=== PATIENT | female | born 1985 | race Caucasian/White ===

== ENCOUNTER 2019-07-14 20:11 | Emergency (ER) | payer OTHER ==
[2019-07-14 20:21] VITALS: BP 134/91
--- NOTE | 2019-07-14 20:56 | ED Physician Documentation ---
History of Present Illness - Stated complaint Stated Complaint: LT EAR PX - Chief complaint Chief Complaint: Heent - History obtained from History obtained from: Patient (Patient is a 33-year-old female who is complaining of left ear pain after she tried to clear her ears today. She reports she has had cold symptoms for the last 2 to 3 days and she has been taking Sudafed she denies any history of barotrauma or history of Surgery for pressure equalization tubes.She denies any headache or neck pain or fevers or rashes.She denies any discharge from her tympanic membrane's.) Review of Systems Constitutional: reports: Reviewed and negative Eyes: reports: Reviewed and negative Ears: reports: Ear pain. denies: Loss of hearing, Drainage/discharge, Foreign body Nose: reports: Reviewed and negative Throat: reports: Reviewed and negative Cardiac: reports: Reviewed and negative Respiratory: reports: Reviewed and negative GI: reports: Reviewed and negative : reports: Reviewed and negative Skin: reports: Reviewed and negative Musculoskeletal: reports: Reviewed and negative Neurologic: reports: Reviewed and negative Psychiatric: reports: Reviewed and negative Endocrine: reports: Reviewed and negative Immunocompromised: reports: Reviewed and negative PD PAST MEDICAL HISTORY - Past Medical History Endocrine/Autoimmune: None - Past Surgical History Past Surgical History: No - Present Medications Home Medications: Ambulatory Orders Medication Instructions Recorded Confirmed Cephalexin [Keflex] 500 mg PO TID #20 capsule 08/29/15 Hydrocodone/Acetaminophen [Archie 1 each PO Q6H PRN #10 tablet 08/29/15 5-325 Tablet] dexAMETHasone [Decadron] 4 mg PO DAILY #5 tablet 08/29/15 - Allergies Allergies/Adverse Reactions: Allergies Allergy/AdvReac Type Severity Reaction Status Date / Time No Known Drug Allergies Allergy Verified 07/14/19 20:19 - Social History Does the pt smoke?: Yes Smoking Status: Current every day smoker Does the pt drink ETOH?: Yes Does the pt have substance abuse?: No - Immunizations Immunizations: TDAP >10years/unknown PD ED PE NORMAL - Vitals Vital signs reviewed: Yes - General General: Alert and oriented X 3, No acute distress, Well developed/nourished - HEENT HEENT: Atraumatic, PERRL, EOMI, Moist mucous membranes, Pharynx benign, Dentition benign, Other (The right tympanic membrane has normal landmarks there is a normal Valsalva there is no discharge in the external auditory canal. There is no tenderness over the mastoid there is no preauricular lymphadenopathy in the left tympanic membrane is erythematous there is an abnormal Valsalva on the left the tympanic membrane is intact there is no discharge in the external auditory canal there is no tenderness over the mastoid process and there is no preauricular lymphadenopathy oropharynx shows postnasal drip present the uvula is midline there is normal voice there is no anterior posterior cervical lymphadenopathy no meningeal signs.) - Neck Neck: Supple, no meningeal sign - Cardiac Cardiac: RRR, No murmur, Strong equal pulses - Respiratory Respiratory: Clear bilaterally - Abdomen Abdomen: Normal bowel sounds, Soft, Non tender, Non distended - Derm Derm: Warm and dry - Extremities Extremities: No deformity - Neuro Neuro: Alert and oriented X 3, 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, No motor deficit, No sensory deficit, Normal speech - Psych Psych: Normal mood, Normal affect Results - Vitals Vitals: Vital Signs - 24 hr 07/14/19 20:19 Temperature 36.6 C Heart Rate 77 Respiratory 14 Rate Blood Pressure 134/91 H O2 Saturation 99 Oxygen O2 Source Room air PD MEDICAL DECISION MAKING - ED course Complexity details: d/w patient, other (Patient with left ear pain will provide short-term treatment with a Archie prepack.She should try [id number] Afrin.And follow-up with her primary care provider tomorrow.) Departure - Departure Disposition: 01 Home, Self Care Clinical Impression: Left ear pain Condition: Good Instructions: ED Obstruction Eustachian Tube Ch Follow-Up: YOUR,DOCTOR [Other] - Tomorrow Comments: TRY OVER THE COUNTER AFRIN FOR THE NEXT 24-48 HOURS. FOLLOW UP WITH YOUR PCP TOMORROW.
[2019-07-14] MEDS ORDERED: HYDROcod/ACET 5/325 Prepack 4 PO STA (21:07)
== END 2019-07-14 21:20 | disposition home or self-care (01) ==
LOC: ED 20:11
DX: H92.02 Otalgia, left ear (principal); R09.82 Postnasal drip; F17.200 Nicotine dependence, unspecified, uncomplicated
CPT/HCPCS: 99282

== ENCOUNTER 2023-04-17 09:24 | Outpatient (CLI) | payer OTHER | END 2023-04-17 09:25 | disposition home or self-care (01) | LOC: SC 09:24 | PROVIDERS: ATTEND Nurse Practitioner Family | DX: G47.33 Obstructive sleep apnea (adult) (pediatric) (principal); R09.02 Hypoxemia; E66.9 Obesity, unspecified; Z68.36 Body mass index [BMI] 36.0-36.9, adult; F32.A Depression, unspecified | CPT/HCPCS: 95806 ==

== ENCOUNTER 2023-05-06 11:21 | Outpatient (CLI) | payer OTHER ==
--- NOTE | 2023-05-06 12:16 | Sleep Patient Instructions ---
Sleep Center Visit Summary - Patient Visit Information Reason for Visit: Sleep study followup - Patient Instructions Instructions Attached: CPAP Additional Instructions: You are being started on CPAP therapy with pressure setting at 4-15 cmH2O. You w ill need to call the sleep care office to set up your follow up once you have your APAP machine and we will schedule a visit to check compliance and response to therapy at that time. You may call the office with any concerns about pressure feeling too low or too much for adjustment, if needed. You should contact DME supplier for any questions or concerns about mask or equipment. Please call office to schedule a follow up appointment in the sleep care office one month after obtaining new device. - Clinic Information Contact: [facility] [address] [place] [address] [email or web address] T: [phone]
--- NOTE | 2023-05-06 12:18 | SLEEP CARE CONSULTATION ---
Information from patient questionnaire entered by Ashli Garcia. I have reviewed and concur with the information entered by Ashli Garcia. This document represents the service I personally performed and the decisions made by me, Chantel Steen ARNP. History of Present Illness Service Date and Time: 05/06/2023 112 Initial [place] Sleepiness Scale score: 14 (04/02/23) Current [place] Sleepiness Scale score: 13 Additional HPI information: BELINDA MAN returns for follow up and results of the recently performed home sleep study. The sleep study showed mild obstructive sleep apnea with an average AHI of 5.8 and abhi oxygen saturation of 87%. I explained the pathophysiology behind obstructive sleep apnea. We then spent quite a bit of time discussing different treatment options. For mild obstructive sleep apnea, surgery and oral appliance are alternatives to nasal CPAP therapy but in moderate or severe cases, nasal CPAP is the most effective and reliable treatment. Because apnea is primarily in supine position, then positional management therapy could be effective. Methods discussed such as positioning with pillows, using a T-shirt with tennis balls in the back or commercial products that have a pillow format on back to prevent supine sleep. I reviewed the impact of weight changes on sleep apnea and strongly recommended losing weight. After some discussion, the patient opted to go with the nasal CPAP therapy. Nasal autoCPAP set at 4-15 cmH20 will be ordered with rationale explained. A manual titration study will be ordered if unable to find optimal pressure with office adjustments. I explained how CPAP machine works and what to expect when using the machine. Using CPAP every night in order to get used to it was emphasized. Patient advised to put CPAP mask on before getting into bed so as not to fall asleep without CPAP. To assist acclimation to CPAP use, it could also be used for a short time during day while reading or watching TV. The patient was instructed to call the CPAP supplier to discuss any mechanical problem that may occur. If the mask given is uncomfortable or is difficult to keep on through the night even with adjustment, contact the CPAP supplier as many will replace with an other mask style if notified before 30 days. If snoring or perceives is not getting enough air or too much air from the machine, notify this office. Patient counseled not drink alcohol less than 4 hours before bedtime as it can increase snoring and apnea. Patient was cautioned about risks of drowsy driving until sleepiness symptoms resolve. Patient denies drowsy driving. Sleep Study - Results Type of Sleep Study: Home sleep study (COMPLETED 04/17/23) Prior sleep studies: No Polysomnography/Home Sleep Study results: Physician Impression: The quality of the study is good. The length of the study is adequate (> 240 minutes). Please also see the tabulated and graphic data. 1. Obstructive Sleep Apnea-Hypopnea (ICD-10 G47.33), mild, with an AHI of 5.8/hr and abhi SaO2 of 87%. During the study, the patient had 16 apneas (16 obstructive, 0 central, 0 mixed) and 21 hypopneas. The longest episode lasted 68.0 seconds. The respiratory events occurred slightly more frequently during supine sleep (supine AHI was 8.7 and non-supine, 4.93). 2. Hypoxemia (ICD-10 R09.02), mild, with the lowest oxygen saturation of 87 % and 1.2 minutes with SaO2 under 90%. Baseline oxygen saturation was normal (Average oxygen saturation was 95%). Allergies and Home Medications Known drug allergies: No Drug allergies reviewed: Yes Home medication list reviewed: Yes (no changes) Allergy and home medication list: Allergies No Known Drug Allergies Allergy (Verified 05/05/23 09:05) Review of Systems Review of systems same as previous: Yes (no changes) Physical Exam Vital signs obtained and entered by: CHANTEL MCCRAY Blood Pressure: 114/73 Cuff size: wrist (right) Heart Rate: 74 O2 Saturation: 98 Height: 5 ft 2.5 in Weight: 208 lb 12.8 oz Body Mass Index: 37.5 BMI Classification: Obese Impression and Plan 1. Obstructive Sleep Apnea-Hypopnea Syndrome, mild, with lowest oxygen saturation of 87%. Obviously this is the cause of the patients symptoms of unrefreshed sleep, and excessive daytime sleepiness. Positive pressure therapy could benefit anxiety, depression, mood disorder and attention deficit. As mentioned above, the patient will be started on nasal autoCPAP therapy with pressure set at 4-15 cmH2O. Compliance guidelines also reviewed. A copy of compliance guidelines will be given for reference at check out. Because the apnea is more severe supine, I instructed to avoid sleeping supine using pillow positioning until able to start CPAP use. 2. Obesity, unspecified. Currently patients BMI is 37.5. Obesity increases the risk of apnea, CPAP pressure requirements and overall health risks especially cardiovascular and diabetes. Thus patient is advised to lose weight. * Nasal auto CPAP therapy, pressure at 4-15 cm H2O. * Attempt to lose weight. * Avoid alcohol consumption near bedtime. * Avoid supine sleep until using CPAP. * The patient is again cautioned about driving until sleepiness completely resolves. * Return one month after CPAP obtained. I will assess response to therapy and compliance at that time. Counseling Topics: Sleeping position, Weight loss health impact Prescriptions: Auto CPAP Plan: Compliance followup with PAP machine Visit Type: In Office Time Spent with Patient (minutes): 24 Provider Statement: I spent 100% of the Face to Face Visit with the patient with greater than 50% spent counseling the patient and coordination of care.
[2023-05-06 12:26] VITALS: BP 114/73; O2SAT 98
== END 2023-05-06 11:22 | disposition home or self-care (01) ==
LOC: SC 11:21
PROVIDERS: ATTEND Nurse Practitioner Family
DX: G47.33 Obstructive sleep apnea (adult) (pediatric) (principal); E66.9 Obesity, unspecified; Z68.37 Body mass index [BMI] 37.0-37.9, adult
CPT/HCPCS: 99212; 99213

== ENCOUNTER 2023-07-23 14:41 | Outpatient (CLI) | payer OTHER ==
--- NOTE | 2023-07-23 15:06 | Sleep Patient Instructions ---
Sleep Center Visit Summary - Patient Visit Information Reason for Visit: First compliance with PAP machine - Patient Instructions Additional Instructions: You were here for follow up of CPAP therapy. You will be continued on CPAP therapy with pressure at 7-11 cmH2O. Please let us know if the pressure change is uncomfortable and we can make further adjustments of the pressure. You should follow up with sleep care in 1-2 months. You may contact us sooner for any questions or concerns. - Clinic Information Contact: [facility] [address] [place] [address] [email or web address] T: [phone]
--- NOTE | 2023-07-23 15:10 | SLEEP CARE CONSULTATION ---
Information from patient questionnaire entered by Merlene Garcia. I have reviewed and concur with the information entered by Merlene Garcia. This document represents the service I personally performed and the decisions made by , Chantel Steen ARNP. History of Present Illness Service Date and Time: 07/23/2023 1441 Previous diagnosis: Mild, Obstructive Sleep Apnea-Hypopnea Syndrome AHI: 5.8 (04/17/23) Reason for follow up: first compliance Equipment type: CPAP (RESMED Airsense 11, s/u 06/12/23) Equipment obtained from: [employer] (getting supplies) Mask style: Nasal Mask brand: Resmed ([id number]) Backup mask available: No (will keep old mask when replaced) Last cushion change: 4 weeks Prior sleep studies: No Type of Sleep Study: Home sleep study (COMPLETED 04/17/23) HPI additional information: BELINDA MAN was diagnosed to have mild, AHI 5.8, obstructive sleep apnea- hypopnea syndrome and returned today for CPAP therapy first compliance follow- up. Sleep Study - Results Type of Sleep Study: Home sleep study (COMPLETED 04/17/23) Prior sleep studies: No CPAP Compliance Data - Data Reviewed with Patient Average duration of nightly device use: 5 HRS 25 MINS Compliance rate %: 63 (06/22/23-07/21/23; /30 days used) Current pressure setting (cmH2O): 4-15 (median 7.4, avg 10, max 11.1) Average residual AHI: 1.3 Central apnea: 0 Obstructive apnea: 1.1 Hypopnea: 0.1 Average large leak: 0.8 L/min Subjective Missed days of use due to: reports: illness (nasal congestion), other (fell asleep without mask on) Patient concerns: reports: nasal congestion (allergies issues). denies: aerophagia, mask discomfort, air blowing in eyes, mask leak noise, condensation in mask/hose, dry mouth, nose, throat, epistaxis Observed to snore while using device: No Current pressure setting perceived as: comfortable On therapy, patient: reports: other (not feeling any improvement so far). denies: drowsiness while driving Initial [place] Sleepiness Scale score: 14 (04/02/23) Current [place] Sleepiness Scale score: 12 (07/23/23) Allergies and Home Medications Known drug allergies: No Allergy and home medication list: Allergies No Known Drug Allergies Allergy (Verified 07/22/23 12:16) Review of Systems Review of systems same as previous: Yes (NO CHANGE) Physical Exam Vital signs obtained and entered by: MERLENE Espinoza MA Blood Pressure: 131/85 (LEFT ARM) Cuff size: regular Heart Rate: 86 O2 Saturation: 97 Height: 5 ft 2.5 in Weight: 213 lb Body Mass Index: 38.3 BMI Classification: Obese Impression and Plan 1. Obstructive Sleep Apnea-Hypopnea Syndrome, mild, with fair treatment compliance and good apnea control. She says she has not felt like she is sleeping better or more rested overall. She has pain issues and moves a lot in bed. She is also a short night sleeper, only 5 1/2 hours sleep nightly. Most people require 7-9 hours of sleep for optimal mental and physical function. Less than 5-6 hours of sleep consistently can contribute to health risks and mortality. Thus patient is advised to strive for a minimum of 7 hours of sleep. The patients pressure will be changed to autoCPAP 7-11 cmH20 to reflect pressure being used with good control of her sleep apnea. Patient advised to contact me if pressure change is uncomfortable so that it can be adjusted. Goals for apnea control discussed. Patient's apnea severity and rationale for treatment to reduce apnea, improve sleep quality and reduce cardiovascular and cerebrovascular events was reviewed. I also reviewed the benefit of consistent device use of CPAP for depression/anxiety, mood disorder and attention deficit. 2. Obesity, unspecified. Currently patients BMI is 38.3. Obesity increases the risk of apnea, CPAP pressure requirements and overall health risks especially cardiovascular and diabetes. Thus patient is advised to lose weight. * Change auto CPAP pressure to 7-11 cmH2O * Notify me if snoring with mask or feeling that the pressure is too much or too little * Attempt to lose weight * Call this office if any problems using CPAP * Return for follow up in 1-2 months, or sooner if concerns arise Adjust device pressure to (cmH2O): 7-11 Counseling Topics: Spare mask, Weight loss health impact Follow up with Sleep Care in: 1-2 months Visit Type: In Office Time Spent with Patient (minutes): 16 Provider Statement: I spent 100% of the Face to Face Visit with the patient with greater than 50% spent counseling the patient and coordination of care.
[2023-07-23 15:12] VITALS: BP 131/85; O2SAT 97
== END 2023-07-23 14:42 | disposition home or self-care (01) ==
LOC: SC 14:41
PROVIDERS: ATTEND Nurse Practitioner Family
DX: G47.33 Obstructive sleep apnea (adult) (pediatric) (principal); E66.9 Obesity, unspecified; Z68.38 Body mass index [BMI] 38.0-38.9, adult
CPT/HCPCS: 99212; 99213

== ENCOUNTER 2023-08-27 11:15 | Outpatient (CLI) | payer OTHER ==
--- NOTE | 2023-08-27 11:51 | Sleep Patient Instructions ---
Sleep Center Visit Summary - Patient Visit Information Reason for Visit: 1 month follow-up with pressure change - Patient Instructions Additional Instructions: You were here for follow up of CPAP therapy. You will be continued on CPAP therapy with pressure at 7-11 cmH2O. Please try mask sent home with you and let me know if you want to change to this style, so I can change this with Mari. You should follow up with sleep care in 3 months. You may contact us sooner for any questions or concerns. - Clinic Information Contact: [facility] [address] [place] [address] [email or web address] T: [phone]
--- NOTE | 2023-08-27 11:57 | SLEEP CARE CONSULTATION ---
Information from patient questionnaire entered by Ashli Garcia. I have reviewed and concur with the information entered by Ashli Garcia. This document represents the service I personally performed and the decisions made by , Chantel Steen ARNP. History of Present Illness Service Date and Time: 08/27/2023 111 Previous diagnosis: Mild, Obstructive Sleep Apnea-Hypopnea Syndrome AHI: 5.8 (04/17/23) Reason for follow up: one month (F/U) Equipment type: CPAP (RESMED Airsense 11, s/u 06/12/23) Equipment obtained from: [employer] ([employer] supplies) Mask style: Nasal Mask brand: Resmed Backup mask available: No Last cushion change: 1 week Prior sleep studies: No Type of Sleep Study: Home sleep study (COMPLETED 04/17/23) HPI additional information: BELINDA MAN was diagnosed to have mild, AHI 5.8, obstructive sleep apnea- hypopnea syndrome and returned today for CPAP therapy one month follow-up. Sleep Study - Results Type of Sleep Study: Home sleep study (COMPLETED 04/17/23) Prior sleep studies: No CPAP Compliance Data - Data Reviewed with Patient Average duration of nightly device use: 6 HRS 0 MINS Compliance rate %: 73 (07/26/23-08/24/23; days used) Current pressure setting (cmH2O): 7-11 Average residual AHI: 1.0 Central apnea: 0 Obstructive apnea: 0.9 Average large leak: 0.4 L/min Subjective Missed days of use due to: reports: other (allergies and congestion) Patient concerns: reports: mask discomfort (skin irritation and pain where mask cushion connects to sides). denies: aerophagia, air blowing in eyes, mask leak noise, condensation in mask/hose, nasal congestion, dry mouth, nose, throat, epistaxis Observed to snore while using device: No Current pressure setting perceived as: comfortable On therapy, patient: reports: sleeping better. denies: drowsiness while driving Initial [place] Sleepiness Scale score: 14 (04/02/23) Current [place] Sleepiness Scale score: 13 (08/27/23) Allergies and Home Medications Known drug allergies: No Drug allergies reviewed: Yes Home medication list reviewed: Yes (no changes) Allergy and home medication list: Allergies No Known Drug Allergies Allergy (Verified 08/25/23 08:55) Review of Systems Review of systems same as previous: Yes (no changes) Physical Exam Vital signs obtained and entered by: ASHLI Espinoza MA Blood Pressure: 154/98 (LEFT ARM) Cuff size: regular Heart Rate: 93 O2 Saturation: 98 Height: 5 ft 2.5 in Weight: 210 lb 9.6 oz Body Mass Index: 37.9 BMI Classification: Obese Impression and Plan 1. Obstructive Sleep Apnea-Hypopnea Syndrome, mild, with good treatment compliance and good apnea control. On CPAP therapy, the patient has better sleep quality. Patient states she has been having some physical pain which is waking her up a lot at night and limiting her ability to feel rested in the mornings. She does feel the CPAP therapy is going well except that her mask is creating sore spots on the sides of her face, top of the cheeks, when using her mask. She states she has eczema and is unsure if this is contributing to skin irritation and soreness. I tried a different style of mask, Oniel Dreamwear gel nasal pillows mask, small cushion, that she felt was comfortable. She will try at home and let me know if she wants to change to this mask. I would then inform her DME of this change. Patient's apnea severity and rationale for treatment to reduce apnea, improve sleep quality and reduce cardiovascular and cerebrovascular events was reviewed. I also reviewed the benefit of consistent device use of CPAP for depression/anxiety, mood disorder and attention deficit. 2. Obesity, unspecified. Currently patients BMI is 37.9. Obesity increases the risk of apnea, CPAP pressure requirements and overall health risks especially cardiovascular and diabetes. Thus patient is advised to lose weight. * Continue auto CPAP pressure at 7-11 cmH2O * Try Dreamwear nasal pillows (gel pillows) mask, small cushion * Notify me if snoring with mask or feeling that the pressure is too much or too little * Attempt to lose weight * Call this office if any problems using CPAP * Return for follow up in 3 months, or sooner if concerns arise Mask provided: Yes Counseling Topics: Spare mask, Weight loss health impact Follow up with Sleep Care in: 3 months Visit Type: In Office Time Spent with Patient (minutes): 25 Provider Statement: I spent 100% of the Face to Face Visit with the patient with greater than 50% spent counseling the patient and coordination of care.
[2023-08-27 12:14] VITALS: BP 154/98; O2SAT 98
== END 2023-08-27 11:16 | disposition home or self-care (01) ==
LOC: SC 11:15
PROVIDERS: ATTEND Nurse Practitioner Family
DX: G47.33 Obstructive sleep apnea (adult) (pediatric) (principal); E66.9 Obesity, unspecified; Z68.37 Body mass index [BMI] 37.0-37.9, adult
CPT/HCPCS: 99212; 99213

== ENCOUNTER 2023-10-02 16:31 | Outpatient (CLI) | payer OTHER ==
--- NOTE | 2023-10-03 10:03 | MRI Report ---
PROCEDURE: Elbow RT WO INDICATIONS: R ELBOW PAIN TECHNIQUE: Noncontrast coronal proton density fast spin echo and T2 fast spin echo with fat saturation, axial an d sagittal T1 spin echo and T2 fast spin echo with fat saturation through the elbow. COMPARISON: None. FINDINGS: Image quality: Excellent. Lateral structures: The lateral ulnar collateral ligament and radial collateral ligament both appear intact. The overlying common extensor tendon demonstrates mild tendinosis and focal low-grade parti al intrasubstance tearing at the origin. Medial structures: The ulnar collateral ligament appears intact. The overlying common flexor tendon appears normal. The ulnar nerve appears normal in size and signal within the cubital tunnel. A sma ll accessory anconeus epitrochlearis muscle is seen that mildly narrows the cubital tunnel. Anterior structures: The biceps and brachialis tendons both appear intact as they insert onto the pr oximal radius and ulna, respectively. No bicipitoradial bursal fluid. The median and radial neurova scular bundles appear normal; no focal muscle atrophy to suggest nerve impingement. Posterior structures: The triceps tendon appears intact. No olecranon bursal fluid. Bone and cartilage: No bone marrow contusions or fractures. No osteochondral injuries. IMPRESSION: 1.Low-grade partial intrasubstance tearing of the common extensor tendon at the origin superimposed o n mild tendinosis. 2.No acute trabecular bone injury. No significant ligament injury is seen. 3.Normal variant accessory anconeus epitrochlearis muscle mildly narrows the cubital tunnel without s ignificant thickening or abnormal signal in the ulnar nerve. Reviewed by: Dean Alfaro MD on 10/03/2023 10:02 AM PDT Approved by: Dean Alfaro MD on 10/03/2023 10:02 AM PDT Station ID: [id number]
== END 2023-10-02 16:32 | disposition home or self-care (01) ==
LOC: DI 16:31
PROVIDERS: ATTEND Nurse Practitioner Family
DX: S56.511A Strain of other extensor muscle, fascia and tendon at forearm level, right arm, initial encounter (principal)

== ENCOUNTER 2023-12-23 16:46 | Outpatient (CLI) | payer OTHER ==
--- NOTE | 2023-12-24 22:34 | Ultrasound Report ---
PROCEDURE: Pelvic w/Transvaginal INDICATIONS: MENORRHAGIA, DYSMENORRHEA TECHNIQUE: Real-time scanning was performed of the pelvic organs, with image documentation. Additional endovagi nal scanning was necessary due to incomplete visualization of the adnexal and endometrial structures by transabdominal scanning. COMPARISON: None. FINDINGS: Uterus: Uterus is anteverted and mildly enlarged in size at 10.5 x 4.4 x 6.1 cm. The myometrium is homogeneous. The endometrium measures 12.4 mm in combined thickness. Ovaries: The right ovary measures 2.5 x 1.4 cm, not well seen. The left ovary measures 1.7 x 1.3 cm, not well seen. The ovaries have a normal sonographic appearance. Less than 12 follicles can be see n in each ovary. No adnexal masses are seen. No cystic lesions measuring greater than 3 cm. Other: No pathologic free abdominal or pelvic fluid. IMPRESSION: Mildly prominent uterus. No fibroids. Ovaries are not well visualized. Reviewed by: Martina Sumner MD on 12/24/2023 10:33 PM PDT Approved by: Martina Sumner MD on 12/24/2023 10:33 PM PDT Station ID: [id number]
== END 2023-12-23 16:47 | disposition home or self-care (01) ==
LOC: DI 16:46
PROVIDERS: ATTEND Obstetrics & Gynecology
DX: N92.0 Excessive and frequent menstruation with regular cycle (principal); N94.6 Dysmenorrhea, unspecified

== ENCOUNTER 2024-02-17 10:18 | Outpatient (CLI) | payer OTHER ==
--- NOTE | 2024-02-17 11:01 | Sleep Patient Instructions ---
Sleep Center Visit Summary - Patient Visit Information Reason for Visit: 6-month follow-up for PAP therapy - Patient Instructions Instructions Attached: Apnea Sleep Mouthpieces Additional Instructions: You were here for follow up of CPAP therapy. You will be discontinued on CPAP therapy. I am ordering an oral appliance to control your sleep apnea. A list of certified dentists in the area was provided for you to find a dentist to have your oral appliance made. Once you have the device, please call and make a follow up appointment. We need to see you after you have been using the appliance for a month. We will evaluate your response to therapy and order a follow up sleep study to check efficiency of treatment. You should follow up with sleep care one month after starting to use the oral appliance. You may contact us sooner for any questions or concerns. - Clinic Information Contact: [facility] [address] [place] [address] [email or web address] T: [phone]
--- NOTE | 2024-02-17 11:06 | SLEEP CARE CONSULTATION ---
Information from patient questionnaire entered by Merlene Garcia. I have reviewed and concur with the information entered by Merlene Garcia. This document represents the service I personally performed and the decisions made by , Chantel Steen ARNP. History of Present Illness Service Date and Time: 02/17/2024 1018 Previous diagnosis: Mild, Obstructive Sleep Apnea-Hypopnea Syndrome AHI: 5.8 (04/17/23) Reason for follow up: six month Equipment type: CPAP (RESMED Airsense 11, s/u 06/12/23) Equipment obtained from: [employer] (getting supplies) Mask style: Nasal (over the nose) Prior sleep studies: No Type of Sleep Study: Home sleep study (COMPLETED 04/17/23) HPI additional information: BELINDA MAN was diagnosed to have mild, AHI 5.8, obstructive sleep apnea- hypopnea syndrome and returned today for CPAP therapy six month follow-up. Sleep Study - Results Type of Sleep Study: Home sleep study (COMPLETED 04/17/23) Prior sleep studies: No CPAP Compliance Data - Data Reviewed with Patient Average duration of nightly device use: 4 HRS 33 MINS Compliance rate %: 15 (08/16/23-02/11/24) Current pressure setting (cmH2O): 7-11 Average residual AHI: 1.4 Subjective Missed days of use due to: reports: mask issues, illness, travel, other (SKIN IRRATATION / RASH / INFAMATION) Patient concerns: reports: mask discomfort, air blowing in eyes, mask leak noise, condensation in mask/hose, nasal congestion, other (CLEANING KEEP BUYING DISTILLED WATER LATE SHIPMENT SHIPPING NOT BEING SENT TO RIGHT ADDRESS) Observed to snore while using device: No Current pressure setting perceived as: comfortable On therapy, patient: reports: other (no improvement of sleep). denies: drowsiness while driving Initial Henderson Sleepiness Scale score: 14 (04/02/23) Current Henderson Sleepiness Scale score: 10 (02/17/24) Allergies and Home Medications Known drug allergies: No Drug allergies reviewed: Yes Home medication list reviewed: Yes (no changes) Allergy and home medication list: Allergies No Known Drug Allergies Allergy (Verified 02/12/24 13:48) Review of Systems Review of systems same as previous: Yes (NO CHANGE) Physical Exam Vital signs obtained and entered by: MERLENE Espinoza MA Blood Pressure: 130/88 (LEFT ARM) Cuff size: regular Heart Rate: 85 O2 Saturation: 97 Height: 5 ft 2.5 in Weight: 208 lb 3.2 oz Body Mass Index: 37.4 BMI Classification: Obese Impression and Plan 1. Obstructive Sleep Apnea-Hypopnea Syndrome, mild, with poor treatment compliance and good apnea control. Patient comes in today because she just cannot tolerate the CPAP mask. She gets rashes and irritation from using it. I reviewed that she could do positional therapy or an oral appliance to control her sleep apnea. She would like to try an oral appliance. A follow up will be made to see if appliance has reduced symptoms. If so, another polysomnography will be ordered with use of the oral appliance to check efficacy in reducing apnea. Until patient is able to use the oral appliance, positional therapy is advised to avoid supine sleep with pillow positioning or one of the commercial products because apnea is more severe supine. Patient's apnea severity and rationale for treatment to reduce apnea, improve sleep quality and reduce card iovascular and cerebrovascular events was reviewed. 2. Obesity, unspecified. Currently patients BMI is 37.4. Obesity increases the risk of apnea, CPAP pressure requirements and overall health risks especially cardiovascular and diabetes. Thus patient is advised to lose weight. * Discontinue CPAP * Avoid sleeping supine * Oral appliance * Attempt to lose weight * Call this office if any problems * Return for follow up one month after obtaining new oral device, or sooner if concerns arise Counseling Topics: Sleeping position, Weight loss health impact Prescriptions: Other (Oral Appliance) Plan: Discontinue CPAP and try to obtain oral appliance for her sleep apnea. Visit Type: In Office Time Spent with Patient (minutes): 23 Provider Statement: I spent 100% of the Face to Face Visit with the patient with greater than 50% spent counseling the patient and coordination of care.
[2024-02-17 11:07] VITALS: BP 130/88; O2SAT 97
== END 2024-02-17 10:19 | disposition home or self-care (01) ==
LOC: SC 10:18
PROVIDERS: ATTEND Nurse Practitioner Family
DX: G47.33 Obstructive sleep apnea (adult) (pediatric) (principal); E66.9 Obesity, unspecified; Z68.37 Body mass index [BMI] 37.0-37.9, adult
CPT/HCPCS: 99212; 99213